=== PATIENT | female | born 1975 | race Caucasian/White ===

== ENCOUNTER 2024-10-03 12:27 | Emergency (ER) | payer MEDICAID ==
[~2024-10-03] VITALS: Ht 160 cm; Wt 77.3 kg
[2024-10-03] VITALS (14 sets, daily range): BP systolic 116–150; BP diastolic 56–84; PULSE 99–106; RESP 12–18; TEMP 98–98.6; O2SAT 98
[2024-10-03 13:46] LABS: PLATELET COUNT (AUTO) 489 K/uL (150-450); RED BLOOD CELL COUNT(AUTO) 4.36 MIL/uL (4.00-5.20); RED CELL DISTRIBUTION WIDTH 22.1 % (11.5-14.5); WHITE BLOOD COUNT (AUTO) 6.9 K/uL (4.5-11.0)
[2024-10-03 13:53] LABS: CALCIUM, TOTAL 7.9 mg/dL (8.8-10.5); CREATININE 0.72 mg/dL (0.60-1.30); GLOMERULAR FILTR. RATE CALC > 60 mL/min (>60); GLUCOSE,RANDOM 104 mg/dL (70-110); SODIUM SERUM 137 mmol/L (136-145); UREA NITROGEN, BLOOD 7 mg/dL (7-18)
[2024-10-03] MEDS: MORPHINE SULFATE 4 MG/ML SYRINGE IVP ONE (13:57)
[2024-10-03] MEDS: ONDANSETRON HCL 4 MG/2 ML VIAL IVP ONE (13:57)
[2024-10-03] MEDS: SODIUM CHLORIDE 0.9% 1,000 ML IV ONE (13:58)
[2024-10-03 14:04] LABS: HCG,QUANTITATIVE 1 mIU/mL (0-6)
[2024-10-03 14:15] LABS: ASPARTATE AMINOTRANSFERASE 15.0 U/L (15-37); TOTAL PROTEIN, SERUM 7.9 g/dL (6.4-8.2)
[2024-10-03] MEDS: IOHEXOL 9 MG/ML 500 ML BOTTLE PO ONE (14:33)
[2024-10-03 14:37] LABS: PATHOLOGY REVIEW, DIFF YES; RBC MORPHOLOGY COMMENT ABNORMAL RBC MORPH
[2024-10-03] MEDS ORDERED: SODIUM CHLORIDE 0.9% 100 ML ONE (14:37)
[2024-10-03] MEDS ORDERED: 0.9% SODIUM CHLORIDE 10 ML SYRINGE IVP ONE (14:37)
[2024-10-03] MEDS ORDERED: IOHEXOL 350 MG/ML 100 ML VIAL ONE (14:37)
[2024-10-03 14:57] LABS: % IRON SATURATION 3.0 % (22-44); IRON, SERUM 9.0 mcg/dL (50-175)
[2024-10-03 15:52] LABS: APPEARANCE,URINE CLEAR (CLEAR); GLUCOSE, URINE (UA) NEGATIVE (NEGATIVE); LEUKOCYTE ESTERASE ,URINE NEGATIVE (NEGATIVE); NITRATE,URINE NEGATIVE (NEGATIVE); OCCULT BLOOD,URINE NEGATIVE (NEGATIVE); SPECIFIC GRAVITIY, URINE 1.005 (1.003-1.030)
== END 2024-10-03 22:42 | disposition short-term general hospital (02) ==
LOC: EMS 12:32
DX: D27.1 Benign neoplasm of left ovary (principal); D27.0 Benign neoplasm of right ovary; R18.8 Other ascites; D50.9 Iron deficiency anemia, unspecified; Z98.891 History of uterine scar from previous surgery
CPT/HCPCS: 99285; 96361; 86870; 74177; 96374; 96375; 80048; 80076; 81003; 83540; 83550; 83690; 84702; 85025; 86850; 86900; 86901; 36415; 86922; P9016; Q9967 ×2; J2270; J2405; J7030; J7050; 86902; 86905